=== PATIENT | female | born 1965 | race Caucasian/White ===

== ENCOUNTER 2016-08-30 09:25 | Emergency (ER) | payer OTHER ==
--- NOTE | 2016-08-30 09:55 | ER PHYSICIAN DOCUMENTATION ---
Physician Documentation [facility] Name:Martina Quick Age:51 yrs Sex:Female :1965 Arrival Date:08/30/2016 Time:09:25 Bed1 Private MD: Eddie Mota Disposition: 08/30/16 09:47 Discharged to Home/Self Care. Impression: Tick Bite, Viral Illness. - Condition is Good. - Discharge Instructions: VIRAL SYNDROME (Adult). - Medical Reconciliation form form. - Follow up: Private Physician; When: As needed; Reason: Continuance of care. - Problem is new. - Symptoms have improved. HPI: 08/30 10:05 The patient was bitten on the left trapezius, by tick. Onset: The symptom(s)/episode jm began/occurred 2 day(s) ago. Associated signs and symptoms: Pertinent positives: fever, myalgias and malaise. . Historical: - Allergies: No known drug Allergies; - Home Meds: 1. Acyclovir Oral - PMHx: None; - PSHx: None; - Ebola Screening: : Patient negative for fever greater than or equal to 101.5 degrees Fahrenheit, and additional compatible Ebola Virus Disease symptoms. Patient denies exposure to infectious person. Patient denies travel to an Ebola-affected area in the 21 days before illness onset. No symptoms or risks identified at this time. . - Immunization history: Flu Vaccine < 1 year. - Social history: Smoking status: Patient states was never smoker of tobacco. Patient uses alcohol but reports only rare drinking. Patient/guardian denies using street drugs, IV drugs, marijuana. ROS: 10:05 Constitutional: Positive for body aches, chills, fatigue, fever, malaise. jm 10:05 Skin: 10:05 Skin: Positive for bite site. 10:05 All other systems are negative. Exam: 10:05 Constitutional: The patient appears alert, awake, comfortable. jm 10:05 Cardiovascular: Rate: normal, Rhythm: regular. 10:05 Respiratory: the patient does not display signs of respiratory distress, Respirations: normal, Breath sounds: are normal. 10:05 Skin: bite site on L trap. Not infected. . Vital Signs: 09:40 BP 110 / 73; Pulse 74; Resp 16; Temp 98.3; Pulse Ox 94% on R/A; sc1 MDM: 09:31 Patient medically screened. 10:11 Differential diagnosis: CO tick fever. Data reviewed: vital signs, nurses notes, and as jm a result, I will discharge patient. Counseling: I had a detailed discussion with the patient and/or guardian regarding: the historical points, exam findings, and any diagnostic results supporting the discharge/admit diagnosis. Dispensed Medications: No medications were administered Signatures: Hayley Dumont RN RN nh1 Eddie Rebolledo MD MD
--- NOTE | 2016-08-30 09:55 | ER NURSING DOCUMENTATION ---
Nurse's Notes [facility] Name:Martina Quick Age:51 yrs Sex:Female :1965 Arrival Date:08/30/2016 Time:09:25 Bed1 Private MD: Diagnosis:Tick Bite;Viral Illness Presentation: 08/30 09:28 Acuity: DEMETRA 3 tg 09:35 Presenting complaint: Patient states: body aches, malaise, chills/fever worsening over sc1 the last 2 days. States she noticed a bite on her posterior left shoulder 2-3 days ago. States glands in the left side of her neck are swollen this morning. Transition of care: patient was not received from another setting of care. Notified ED Physician of patient's arrival and CC Amaury Shirley notified. 09:35 Method Of Arrival: Private Vehicle [facility] [place] 09:41 Care prior to arrival: Medication(s) given: Ibuprofen 400mg. va1 Triage Assessment: 09:39 Bite description: bite sustained to left trapezius by a tick. General: Appears in no sc1 apparent distress, well developed, well nourished, well groomed, Behavior is cooperative, pleasant. Pain: Complains of pain in generalized body aches. 09:54 Bite description:. sc1 Historical: - Allergies: No known drug Allergies; - Home Meds: 1. Acyclovir Oral - PMHx: None; - PSHx: None; - Ebola Screening: : Patient negative for fever greater than or equal to 101.5 degrees Fahrenheit, and additional compatible Ebola Virus Disease symptoms. Patient denies exposure to infectious person. Patient denies travel to an Ebola-affected area in the 21 days before illness onset. No symptoms or risks identified at this time. . - Immunization history: Flu Vaccine < 1 year. - Social history: Smoking status: Patient states was never smoker of tobacco. Patient uses alcohol but reports only rare drinking. Patient/guardian denies using street drugs, IV drugs, marijuana. Screenin:41 Infectious Disease Risk None. Abuse screen: Denies threats or abuse. Nutritional va1 screening: No deficits noted. Assessment: 09:54 Derm: Skin is intact, Skin is pink, warm & dry. va1 Vital Signs: 09:40 BP 110 / 73; Pulse 74; Resp 16; Temp 98.3; Pulse Ox 94% on R/A; sc1 ED Course: 09:27 Patient arrived in ED. ama 09:28 Triage completed. tg 09:30 Hayley Dumont, RN is Primary Nurse. [facility] 09:31 Eddie Rebolledo MD is Attending Physician. vishnu 09:41 Notified ED Physician of patient's arrival and chief complaint. Dr. Rebolledo notified. [facility] 09:54 Valuables Remains with patient. [facility] Administered Medications: No medications were administered Outcome: 09:47 Discharge ordered by . 09:53 Discharged to home ambulatory. [facility] 09:53 Condition: stable 09:53 Discharge instructions given to patient, Instructed on discharge instructions, follow up and referral plans. Demonstrated understanding of instructions. 09:55 [address] the ED[address] [facility] 08/31 12:05 Discharge F/U Call: Unable to reach: left message with person person taking message: male S.O. Signatures: Walter Finch RN RN Hayley Dumont, RN RN [facility] Eddie Rebolledo MD MD jm Averdick, Andrew, [facility] Lucero Toribio
== END 2016-08-30 09:55 | disposition home or self-care (01) ==
LOC: ER 09:25
DX: S40.262A Insect bite (nonvenomous) of left shoulder, initial encounter (principal); W57.XXXA Bitten or stung by nonvenomous insect and other nonvenomous arthropods, initial encounter; B34.9 Viral infection, unspecified; R50.9 Fever, unspecified; M79.1 Myalgia; R53.83 Other fatigue; R53.81 Other malaise
CPT/HCPCS: 99281